=== PATIENT | female | born 1970 | race Caucasian/White ===

== ENCOUNTER 2018-10-30 06:19 | Day surgery (SDC) | payer OTHER, SELFPAY ==
[2018-10-30] VITALS (12 sets, daily range): BP systolic 84–105; BP diastolic 56–72; PULSE 55–83; RESP 16; TEMP 36.2–37.1; O2SAT 93–97; BMI 29.5
[2018-10-30 06:55] LABS: Internal QC Validated? YES +Cl - CLEAR BKGD
[2018-10-30 06:56] LABS: Pregnancy, Urine Negative Negative
--- NOTE | 2018-10-30 07:30 | RAD_ITS ---
STUDY: X-RAY - RIGHT ANKLE REASON FOR EXAM: Female, 47 years old. Fluoroscopic guidance for hardware removal TECHNIQUE: 2 fluoroscopic view(s) of the ankle. Dose area product: 4.59 mGycm2 COMPARISON: None. FINDINGS: Limited coned views of the ankle show lucent defects of the distal fibula and tibia compatible with prior hardware. No fracture seen. RAD/Ankle 2 Views IMPRESSION: Fluoroscopic guidance for hardware removal. Electronically Signed: Sung Desouza MD at 13:00 EDT , Service support ,
[2018-10-30] MEDS: Cefazolin 1 GM/50 ML BAG IV (07:35)
[2018-10-30] MEDS: Bupivacaine Mpf 0.5% 30 ML VIAL (07:50)
--- NOTE | 2018-10-30 09:21 | DCINST_ITS ---
Discharge Activity: May Not Drive, May not drive while taking narcotic pain medications., May Not Shower, Use Crutches Ice area for (Minutes): 20 - Apply ice behind right knee 20 minutes of each hour while awake Weight Bearing Status: No weight bearing Keep extremity elevated above heart level: Operative Extremity Call your doctor if your incision/area has: Sudden Increased Bleeding Call your doctor if you observe: Fever of 101 or Higher, Inability to urinate, Shortness of breath, Dizziness, Chest pain, Increased palpitations (irregular heartbeat), Calf discomfort, Uncontrolled pain Cleanse incision/area with: Keep Dressing Clean & Dry Allergies/Adverse Reactions: Allergies No Known Allergies Allergy (Verified 10/22/18 12:04) Medications to take at Discharge Acetaminophen 1,000 mg PO Q8 #30 tab 10/30/18 traMADol [Ultram] 50 mg PO Q4H PRN PRN 7 Days #28 tab 10/30/18 The following prescriptions were given: Acetaminophen 1,000 mg PO Q8 #30 tab Prescription Printed traMADol [Ultram] 50 mg PO Q4H PRN PRN 7 Days #28 tab PRN Reason: pain Prescription Printed Primary Care Physician: Cherrie Cyr NP-C [Primary Care Provider] - Test Results: Test results from this visit will be discussed in further detail at your follow- up appointment, if applicable. Please Follow Up With: Nikkie Corrales DPM When: Please follow up at your previously scheduled post operative appt next week Proposed Discharge Date: 10/30/18
--- NOTE | 2018-10-30 09:26 | OP.PCM_ITS ---
Report of Operation Date of Procedure: 10/30/18 Pre-Operative Diagnosis: R ankle painful hardware Post-Operative Diagnosis: same Surgery/Procedure Performed:: R ankle removal of hardware, deep industrial sales engineer: Samuel Moore Estimated Blood Loss (mL): minimal Description of Procedure: Indications: Pt is a 47 yo F who sustained a right ankle fracture last fall. She had an unremarkable recovery and was doing well until September when she noted some irritation and pain from the hardware on her lateral ankle. Conservative and surgical options were discussed and patient elected surgical intervention for hardware removal. All risks, complications, and alternatives were discussed with the patient, and the patient signed an informed consent. No guarantees were given. Procedure: On 10/30/2018, Shirin Sanchez was visually and verbally identified in the preoperative holding area. The consent form was again reviewed with the patient, as were all risks, complications, and alternatives and the patient wished to proceed with the proposed surgery. The right ankle was marked as the correct operative extremity. The patient was brought to the operating room and placed on the operating room table in a lazy lateral position. The patient was draped in a lead apron. After induction by anesthesia, a surgical time out was performed and all present were in agreement. a pneumatic thigh tourniquet was then placed. At this time the right lower extremity was prepped and draped in the usual sterile fashion. after exsanguination with an esmarch the tourniquet was inflated to 300 mmHg. 10 cc of 0.5% marcaine plain was injected at the planned surgical site. At this time attention was directed to the right lateral ankle. Using a #15 blade a curvilinear incision was made over the previous well healed surgical site. An additional 10 cc of 0.5% marcaine plain was then injected. The incision was bluntly carried deep through the subcutaneous tissues with careful attention paid to all bleeders, which were clamped and tied or bovied as necessary. All vital neurovascular structures were retracted. The plate and screws were identified and removed in total and without complication. The fibula fracture appeared to be well healed. This was confirmed on intraoperative fluoroscopy. The screw sites were curetted and the incision was flushed with copious amounts of normal sterile saline. Closure was then initiated. 2.0 vicryl was used for deep tissue, 3.0 vicryl for subcutaneous tissue and 3.0 prolene for skin. adaptic and dry sterile dressings were applied to the surgical site. A multi layer compression dressing and posterior splint was then applied. Total tourniquet time was 41 minutes with immediate capillary refill noted to all digits upon deflation. The patient tolerated the procedure and anesthesia well. The patient was then transported to the postanesthesia care unit by a member of the anesthesia team and myself with all vital signs stable and neurovascular status of the right lower extremity equal to pre-operative levels. At the end of the case all sponge, needle and instrument counts were found to be correct. Grafts/Implants Used: none - Complications none - Admit VTE Documentation VTE Present on Admission: No VTE Mechan Device Prophylaxis: SCD's, Knee High SARITA Hose VTE Pharm Prophylaxis ordered?: Yes
--- NOTE | 2018-10-30 09:35 | RAD_ITS ---
STUDY: X-RAY - RIGHT ANKLE REASON FOR EXAM: Female, 47 years old. TECHNIQUE: view(s) of the ankle. COMPARISON: None. FINDINGS: There are lucencies in the distal fibula and tibia due to previous screws insertion no evidence of fracture, no soft tissue swelling identified. The ankle mortise is unremarkable. A splint is seen posteriorly. Plantar heel spur is noted. RAD/Ankle min 3 Views IMPRESSION: Signs of previous hardware has been removed Plantar heel spur. Electronically Signed: Norma Chavarria, at 10:04 EDT Tel , Service support ,
[2018-10-30] MEDS: traMADol 50 MG Tablet PO (10:39)
== END 2018-10-30 11:04 | disposition home or self-care (01) ==
LOC: SDC 06:24 → AC 06:25
PROVIDERS: Anesthesiology; Family Provider Nurse Practitioner Family; PCP Nurse Practitioner Family; Referring Provider Podiatrist Foot & Ankle Surgery; Visit Provider Podiatrist Foot & Ankle Surgery
PROC: (CPT 20680; principal; 2018-10-30 07:15)
DX: T84.84XA Pain due to internal orthopedic prosthetic devices, implants and grafts, initial encounter (principal); S82.61XD Displaced fracture of lateral malleolus of right fibula, subsequent encounter for closed fracture with routine healing; X58.XXXD Exposure to other specified factors, subsequent encounter; M19.90 Unspecified osteoarthritis, unspecified site; R60.0 Localized edema; F17.210 Nicotine dependence, cigarettes, uncomplicated
CPT/HCPCS: 20680; 73600; 73610; 76000; 81025; J7120; J2405